=== PATIENT | male | born 1985 | race Caucasian/White ===

== ENCOUNTER 2018-10-10 19:13 | Emergency (ER) | payer BC ==
[~2018-10-10] VITALS: Ht 167.6 cm; Wt 120.2 kg
== END 2018-10-10 21:01 | disposition home or self-care (01) ==
LOC: ER 19:13
DX: S51.052A Open bite, left elbow, initial encounter (principal); S31.154A Open bite of abdominal wall, left lower quadrant without penetration into peritoneal cavity, initial encounter; W54.0XXA Bitten by dog, initial encounter; Y93.89 Activity, other specified; Y92.89 Other specified places as the place of occurrence of the external cause; Y99.8 Other external cause status